=== PATIENT | male | born 1950 | race Caucasian/White ===

== ENCOUNTER 2017-12-26 18:40 | Emergency (ER) | payer OTHER, SELFPAY ==
[2017-12-26 18:47] VITALS: BP 163/88; PULSE 60; RESP 14; TEMP 36.7; O2SAT 100; BMI 29.5
--- NOTE | 2017-12-26 19:43 | ED.SKABFB ---
HPI - Skin/Abscess/Foreign Bdy <MAINE Collado - Last Filed: 12/26/17 22:21> General Chief complaint: Skin/Abscess/Foreign Body Stated complaint: RT LEG INJURY/FALL Time Seen by Provider: 12/26/17 19:42 History of Present Illness HPI narrative: 67-year-old male here for complaint of laceration/puncture wound to his right posterior thigh. Patient states that he was walking when he slipped fell backwards and landed up against a small sharp rock. He denies any head injuries. No loss of consciousness. He denies any other injuries. Patient is able ambulate in the emergency room. He reports that his tetanus is up-to-date. No other concerns Related Data Allergies Allergy/AdvReac Type Severity Reaction Status Date / Time No Known Drug Allergies Allergy Verified 12/26/17 18:49 Review of Systems <MAINE Collado - Last Filed: 12/26/17 22:21> Constitutional Denies chills, Denies fever(s), Denies lethargy and Denies weakness Eyes Denies change in vision, Denies eye discharge, Denies irritation and Denies loss of vision Cardiovascular Denies chest pain, Denies irregular heart rhythm, Denies lightheadedness, Denies palpitations and Denies orthopnea Gastrointestinal Gastrointestinal: Denies abdominal pain, Denies change in bowel habits, Denies diarrhea, Denies nausea and Denies vomiting Musculoskeletal Comments: Laceration to right posterior thigh Integumentary/Breasts Denies pruritus, Denies erythema, Denies rash and Denies wounds Neurologic Denies confusion, Denies loss of vision and Denies weakness Psychiatric Denies anxiety, Denies confusion, Denies depression, Denies homicidal ideation and Denies suicidal ideation Endocrine Denies palpitations Exam <MAINE Collado - Last Filed: 12/26/17 22:21> Const General: cooperative and well developed Nutritional Appearance: well nourished Orientation: alert, awake, oriented x3 and not confused HENMT Head: normal to inspection and normocephalic Eyes Pupils: PERRL EOM: EOM intact bilaterally Resp Effort & Inspection: normal respiratory effort and able to speak in complete sentences Auscultation: not clear to auscultation bilaterally Cardio Rate: regular rate Rhythm: regular rhythm Heart Sounds: no click, no gallops, no murmurs and no rubs Skin General: no rashes or lesions noted, No jaundice and No petechiae Extrem Other: 2.5 cm laceration to right posterior thigh. Distal sensation is intact. Full range of motion distally. Distal pulses are intact. Wound inspected no foreign bodies are found. Wound depth approximately half an inch Procedures <MAINE Collado - Last Filed: 12/26/17 22:21> Joint Aspiration/Injection Laceration 1: Site: lower extremity Size (cm): 2.5 Description: irregular Depth: involves muscle layer Local Anesthetic: lidocaine 1% Amount of anesthesia used (mL): 3 Pre-repair: wound explored, irrigated extensively and deep structures intact Skin layer closed with: nylon Size (cm): 4-0 Number of sutures: 4 Technique: simple, interrupted MDM - Skin/Abscess/Foreign Bdy <MAINE Collado - Last Filed: 12/26/17 22:21> [facility] Narrative Medical decision making narrative: Laceration to right posterior thigh irrigated with normal saline extensively. Wound closed with 4 sutures. Patient tolerated well. Wound dressed with bacitracin and a dressing. Sutures out in approximately 10 days. Follow up with primary care provider. [id number] Tylenol or Motrin as needed for any discomfort. Discussed x-ray with patient patient refused x-ray of thigh. Patient states his tetanus is up-to-date. Dress wound daily with bacitracin and a dressing. For any worsening symptoms return to the emergency room. Discharge Plan Departure Patient Disposition: Home, Self-Care Clinical Impression: Laceration of right thigh Discharge Date/Time: 12/26/17 20:20 Interventions: ED Discharge Assessment Last Done: 12/26/17 20:18 Instructions: DI for Laceration Repair Activity Restrictions/Additional Instructions: Laceration to right posterior thigh irrigated with normal saline extensively. Wound closed with 4 sutures. Wound dressed with bacitracin and a dressing. Sutures out in approximately 10 days. Follow up with primary care provider. [id number] Tylenol or Motrin as needed for any discomfort. Dis Dress wound daily with bacitracin and a dressing. For any worsening symptoms return to the emergency room. Referrals: [facility] [Provider Group] Course <MAINE Collado - Last Filed: 12/26/17 22:21> Last Vital Signs Temp 98.0 F 12/26/17 18:47 Pulse 60 12/26/17 18:47 Resp 14 12/26/17 18:47 BP 163/88 H 12/26/17 18:47 Pulse Ox 100 12/26/17 18:47 <Cleve James DO - Last Filed: 12/27/17 00:28> Last Vital Signs Temp 98.0 F 12/26/17 18:47 Pulse 60 12/26/17 18:47 Resp 14 12/26/17 18:47 BP 163/88 H 12/26/17 18:47 Pulse Ox 100 12/26/17 18:47 <Cleve James DO - Last Filed: 12/27/17 00:28> Cosign ED Attending Cosignature Attestation: I was available for consultation during this patient's emergency department encounter
--- NOTE | 2017-12-26 19:49 | ED_ITS ---
HPI - Skin/Abscess/Foreign Bdy <MAINE Collado - Last Filed: 12/26/17 22:21> General Chief complaint: Skin/Abscess/Foreign Body Stated complaint: RT LEG INJURY/FALL Time Seen by Provider: 12/26/17 19:42 History of Present Illness HPI narrative: 67-year-old male here for complaint of laceration/puncture wound to his right posterior thigh. Patient states that he was walking when he slipped fell backwards and landed up against a small sharp rock. He denies any head injuries. No loss of consciousness. He denies any other injuries. Patient is able ambulate in the emergency room. He reports that his tetanus is up-to-date. No other concerns Related Data Allergies Allergy/AdvReac Type Severity Reaction Status Date / Time No Known Drug Allergies Allergy Verified 12/26/17 18:49 Review of Systems <MAINE Collado - Last Filed: 12/26/17 22:21> Constitutional Denies chills, Denies fever(s), Denies lethargy and Denies weakness Eyes Denies change in vision, Denies eye discharge, Denies irritation and Denies loss of vision Cardiovascular Denies chest pain, Denies irregular heart rhythm, Denies lightheadedness, Denies palpitations and Denies orthopnea Gastrointestinal Gastrointestinal: Denies abdominal pain, Denies change in bowel habits, Denies diarrhea, Denies nausea and Denies vomiting Musculoskeletal Comments: Laceration to right posterior thigh Integumentary/Breasts Denies pruritus, Denies erythema, Denies rash and Denies wounds Neurologic Denies confusion, Denies loss of vision and Denies weakness Psychiatric Denies anxiety, Denies confusion, Denies depression, Denies homicidal ideation and Denies suicidal ideation Endocrine Denies palpitations Exam <MAIEN Collado - Last Filed: 12/26/17 22:21> Const General: cooperative and well developed Nutritional Appearance: well nourished Orientation: alert, awake, oriented x3 and not confused HENMT Head: normal to inspection and normocephalic Eyes Pupils: PERRL EOM: EOM intact bilaterally Resp Effort & Inspection: normal respiratory effort and able to speak in complete sentences Auscultation: not clear to auscultation bilaterally Cardio Rate: regular rate Rhythm: regular rhythm Heart Sounds: no click, no gallops, no murmurs and no rubs Skin General: no rashes or lesions noted, No jaundice and No petechiae Extrem Other: 2.5 cm laceration to right posterior thigh. Distal sensation is intact. Full range of motion distally. Distal pulses are intact. Wound inspected no foreign bodies are found. Wound depth approximately half an inch Procedures <MAINE Collado - Last Filed: 12/26/17 22:21> Joint Aspiration/Injection Laceration 1: Site: lower extremity Size (cm): 2.5 Description: irregular Depth: involves muscle layer Local Anesthetic: lidocaine 1% Amount of anesthesia used (mL): 3 Pre-repair: wound explored, irrigated extensively and deep structures intact Skin layer closed with: nylon Size (cm): 4-0 Number of sutures: 4 Technique: simple, interrupted MDM - Skin/Abscess/Foreign Bdy <MAINE Collado - Last Filed: 12/26/17 22:21> [facility] Narrative Medical decision making narrative: Laceration to right posterior thigh irrigated with normal saline extensively. Wound closed with 4 sutures. Patient tolerated well. Wound dressed with bacitracin and a dressing. Sutures out in approximately 10 days. Follow up with primary care provider. Over-the- counter Tylenol or Motrin as needed for any discomfort. Discussed x-ray with patient patient refused x-ray of thigh. Patient states his tetanus is up-to- date. Dress wound daily with bacitracin and a dressing. For any worsening symptoms return to the emergency room. Discharge Plan Departure Patient Disposition: Home, Self-Care Clinical Impression: Laceration of right thigh Discharge Date/Time: 12/26/17 20:20 Interventions: ED Discharge Assessment Last Done: 12/26/17 20:18 Instructions: DI for Laceration Repair Activity Restrictions/Additional Instructions: Laceration to right posterior thigh irrigated with normal saline extensively. Wound closed with 4 sutures. Wound dressed with bacitracin and a dressing. Sutures out in approximately 10 days. Follow up with primary care provider. [id number] Tylenol or Motrin as needed for any discomfort. Dis Dress wound daily with bacitracin and a dressing. For any worsening symptoms return to the emergency room. Referrals: [facility] [Provider Group] Course <MAINE Collado - Last Filed: 12/26/17 22:21> Last Vital Signs Temp 98.0 F 12/26/17 18:47 Pulse 60 12/26/17 18:47 Resp 14 12/26/17 18:47 BP 163/88 H 12/26/17 18:47 Pulse Ox 100 12/26/17 18:47 <Cleve James DO - Last Filed: 12/27/17 00:28> Last Vital Signs Temp 98.0 F 12/26/17 18:47 Pulse 60 12/26/17 18:47 Resp 14 12/26/17 18:47 BP 163/88 H 12/26/17 18:47 Pulse Ox 100 12/26/17 18:47 <Cleve James DO - Last Filed: 12/27/17 00:28> Cosign ED Attending Cosignature Attestation: I was available for consultation during this patient's emergency department encounter
--- NOTE | 2017-12-26 20:15 | PC.NURSE ---
Forrest dressing with bacitracin ointment ino
== END 2017-12-26 20:20 | disposition home or self-care (01) ==
PROVIDERS: Emergency Provider Nurse Practitioner Family
DX: S71.111A Laceration without foreign body, right thigh, initial encounter (principal); W01.10XA Fall on same level from slipping, tripping and stumbling with subsequent striking against unspecified object, initial encounter
CPT/HCPCS: 12001; 12011; 12031; 99282; 99283

== ENCOUNTER → 2018-05-27 11:45 | Outpatient (CLI) | payer OTHER, SELFPAY | PROVIDERS: PCP Family Medicine; Visit Provider Family Medicine | DX: Z13.820 Encounter for screening for osteoporosis (principal); Z87.81 Personal history of (healed) traumatic fracture | CPT/HCPCS: 77080 ==

== ENCOUNTER → 2020-12-03 13:58 | Outpatient (CLI) | payer MEDICARE, SELFPAY ==
[2020-12-03 20:49] LABS: COVID19 - ORCAS (NP or Nasal) Negative (Negative)
== END ==
PROVIDERS: PCP Family Medicine; Visit Provider Family Medicine
DX: Z20.822 Contact with and (suspected) exposure to COVID-19 (principal)
CPT/HCPCS: U0003

== ENCOUNTER → 2021-05-29 09:49 | Outpatient (CLI) | payer MEDICARE, SELFPAY ==
[2021-05-29 19:33] LABS: Add Manual Diff / Slide Review NO; Basophils Absolute Auto 0 /uL (0-100); Basophils Percent Auto 0.5 % (0-2); Eosinophils Absolute Auto 200 /uL (0-450); Hematocrit 43.7 % (41-53); Hemoglobin 14.3 g/dL (13.5-17.5); Lymphocytes Absolute Auto 1800 /uL (1100-4500); Lymphocytes Percent Auto 31.6 % (25-40); Mean Corpuscular HGB Conc 32.7 % (30-36); Mean Corpuscular Volume 88.9 fL (80-100); Monocytes Absolute Auto 500 /uL (0-900); Monocytes Percent Auto 9.5 % (3-14); Neutrophils Absolute Auto 3200 /uL (1500-7000); Neutrophils Percent Auto 54.4 % (50-75); Platelet Count 230 X10^3/uL (150-400); Red Blood Cell Count 4.91 X10^6/uL (4.5-5.9); White Blood Cell Count 5.8 X10^3/uL (4.5-11.0)
[2021-05-29 19:48] LABS: Alanine Aminotransferase 27 IU/L (<50); Albumin 4.3 g/dL (3.5-5.0); Albumin Globulin Ratio 1.4 (1.0-2.8); Alkaline Phosphatase 55 U/L (38-126); Aspartate Aminotransferase 30 IU/L (17-59); BUN Creatinine Ratio 16.5 (6-22); Bilirubin Total 0.6 mg/dL (0.2-1.3); Blood Urea Nitrogen 21 mg/dL (9-20); Calcium 9.6 mg/dL (8.4-10.2); Carbon Dioxide 31 mmol/L (22-32); Chloride 103 mmol/L (98-107); Estimated Glomerular Filt Rate 56.2 mL/min (>60); Glucose 92 mg/dL (80-110); HEMOLYSIS < 15 (0-50); Potassium 4.3 mmol/L (3.4-5.1); Sodium 140 mmol/L (137-145); Total Protein 7.3 g/dL (6.3-8.2)
[2021-05-29 20:14] LABS: Prostate Specific Antigen Scrn 0.995 ng/mL (0.1-4.0)
[2021-05-29 20:17] LABS: Testosterone 169 ng/dL (71.8-623)
[2021-05-29 20:19] LABS: TSH w/ Reflex to FT4 1.56 uIU/mL (0.47-4.68)
[2021-05-29 20:34] LABS: Vitamin B12 > 1000 pg/mL (239-931)
== END ==
PROVIDERS: PCP Family Medicine; Visit Provider Family Medicine
DX: E53.8 Deficiency of other specified B group vitamins (principal); R79.89 Other specified abnormal findings of blood chemistry; F41.9 Anxiety disorder, unspecified; R39.11 Hesitancy of micturition; Z12.5 Encounter for screening for malignant neoplasm of prostate; N52.9 Male erectile dysfunction, unspecified; I10 Essential (primary) hypertension; I49.8 Other specified cardiac arrhythmias; K21.9 Gastro-esophageal reflux disease without esophagitis
CPT/HCPCS: 80053; 82607; 84403; 84443; 85025; G0103

== ENCOUNTER → 2021-05-31 09:04 | Outpatient (CLI) | payer MEDICARE, SELFPAY ==
[2021-05-31 20:13] LABS: COVID19 - ORCAS (NP or Nasal) Negative (Negative)
== END ==
PROVIDERS: PCP Family Medicine; Referring Provider Family Medicine; Visit Provider Family Medicine
DX: Z20.822 Contact with and (suspected) exposure to COVID-19 (principal)
CPT/HCPCS: C9803; U0003